=== PATIENT | female | born 1960 | race Caucasian/White ===

== ENCOUNTER 2019-11-06 23:46 | Emergency (ER) | payer MEDICARE, MEDICAID ==
[~2019-11-06] VITALS: Ht 162.6 cm; Wt 98.0 kg
[2019-11-06 23:50] VITALS: BP 124/68
--- NOTE | 2019-11-07 00:01 | NUR ---
PT GIVEN JUICE AND A SANDWICH
--- NOTE | 2019-11-07 02:41 | NUR ---
PT WAS TAKEN TO THE BATHROOM TO VOID. SHE WAS UNABLE TO VOID. SHE THEN SAID SHE WANTS TO LEAVE TO GO SMOKE. MADE AWARE.
--- NOTE | 2019-11-07 02:42 | NUR ---
PT HAS NO C/O ANYTHING OTHER THAN JUST WANTING TO SEE THE MD FOR A PHYSICAL.
== END 2019-11-07 02:48 | disposition home or self-care (01) ==
LOC: ER 23:47
DX: R10.9 Unspecified abdominal pain (principal)
CPT/HCPCS: 99283

== ENCOUNTER 2020-02-20 11:31 | Emergency (ER) | payer BC, MEDICAID ==
[~2020-02-20] VITALS: Ht 162.6 cm; Wt 77.3 kg
[2020-02-20] MEDS ORDERED: LORazepam 2 mg/ml vial IM ONE ×2 (11:40→17:50)
[2020-02-20] MEDS ORDERED: diphenhydrAMINE 50 mg/ml inj IM ONE ×2 (11:40→17:50)
[2020-02-20] MEDS ORDERED: OLANZapine **IM** 10 mg inj. IM ONE (11:40)
[2020-02-20 13:12] LABS: BASOPHILS # (AUTO) 0.1 X10'3 (0-0.2); BASOPHILS % (AUTO) 1.1 % (0-1); EOSINOPHILS # (AUTO) 0.1 X10'3 (0-0.9); EOSINOPHILS % (AUTO) 0.9 % (0-6); HEMATOCRIT 42.3 % (35.0-45.0); LYMPHOCYTES # (AUTO) 2.1 X10'3 (1.1-4.8); LYMPHOCYTES % (AUTO) 32.8 % (21-51); MEAN CORPUSCULAR HEMOGLOBIN 31.1 PG (27.0-31.0); MEAN CORPUSCULAR HGB CONC 33.1 g/dL (33.0-36.5); MEAN CORPUSCULAR VOLUME 93.8 FL (78-98); MEAN PLATELET VOLUME 8.7 FL (7.4-10.4); MONOCYTES # (AUTO) 0.4 X10'3 (0-0.9); MONOCYTES % (AUTO) 6.8 % (2-12); NEUTROPHILS # (AUTO) 3.8 X10'3 (1.8-7.7); NEUTROPHILS % (AUTO) 58.4 % (42-75); PLATELET COUNT 306 X10'3 (140-440); RED BLOOD COUNT 4.51 X10'6 (4.20-5.60); RED CELL DISTRIBUTION WIDTH 13.4 % (11.5-14.5); WHITE BLOOD COUNT 6.5 X10'3 (4.5-11.0)
[2020-02-20 13:31] LABS: ALANINE AMINOTRANSFERASE 28 U/L (12-78); ALBUMIN/GLOBULIN RATIO 1.3 (1.1-1.5); ALKALINE PHOSPHATASE 80 IU/L (46-116); ANION GAP 8 (8-16); ASPARTATE AMINO TRANSFERASE 25 U/L (10-37); BILIRUBIN,TOTAL 0.8 MG/DL (0.1-1.0); BLOOD UREA NITROGEN 14 MG/DL (7-18); BUN/CREATININE RATIO 14.9 (6.6-38.0); CALCIUM 9.9 MG/DL (8.5-10.1); CHLORIDE 105 MMOL/L (99-107); CREATININE 0.94 MG/DL (0.40-0.90); GLUCOSE 100 MG/DL (70-104); POTASSIUM 3.1 MMOL/L (3.5-5.1); SODIUM 141 MMOL/L (135-145); TOTAL CARBON DIOXIDE 27.9 MMOL/L (24-32); TOTAL PROTEIN 7.2 G/DL (6.4-8.2); eGFR 61 ML/MIN
[2020-02-20 13:38] LABS: ETHANOL < 0.010 GM/DL (0.0-0.010)
--- NOTE | 2020-02-20 15:25 | NUR ---
Patient moved from ED bed 10 to ED Overflow bed 23. Assumed care of the patient at this time.
--- NOTE | 2020-02-20 16:17 | NUR ---
Pt is sleeping but is flailing around in the bed and restless. Continuing to monitor closely.
[2020-02-20] MEDS ORDERED: potassium Cl 20 mEq SR tablet PO STA (17:07)
--- NOTE | 2020-02-20 17:30 | NUR ---
pt up to bathroom and back to bed. pt is unhappy and wants to "go outside and smoke a cigar". pt is talking with nurse Sona at bedside now. pt is cursing and mad at the system.
[2020-02-20] MEDS ORDERED: haloperidol lactate 5mg/ml inj IM ONE (17:50)
--- NOTE | 2020-02-20 18:05 | NUR ---
Pt's sister Mckenzie phoned to give more details about the patient's history and made some statements about the patient is not mentally stable and needs to have her medications adjusted.
[2020-02-20] MEDS ORDERED: LAMO150T6 PO (20:30)
[2020-02-20] MEDS ORDERED: AMLO5TAB16 PO (20:30)
[2020-02-20] MEDS ORDERED: CITA20TA16 PO (20:30)
[2020-02-20] MEDS ORDERED: DIVA-74 PO (20:30)
[2020-02-20] MEDS ORDERED: LISI10TA4 PO (20:30)
[2020-02-20] MEDS ORDERED: CHLO25TA10 PO (20:30)
[2020-02-20] MEDS ORDERED: ATOR20TA66 PO (20:30)
[2020-02-20] MEDS ORDERED: atorvastatin 20mg tablet PO SCH (21:00)
--- NOTE | 2020-02-21 02:57 | NUR ---
Patient has been cooperative tonight and has been sleeping most of the shift.
[2020-02-21 05:39] LABS: URINE HCG NEGATIVE (NEG)
[2020-02-21 05:41] LABS: CLARITY,URINE CLEAR (Clear); COLOR,URINE YELLOW (Yellow); GLUCOSE, URINE NEGATIVE (Neg); KETONES,URINE NEGATIVE (Neg); LEUKOCYTE ESTERASE ,URINE NEGATIVE (Neg); NITRITES, URINE NEGATIVE (Neg); OCCULT BLOOD,URINE NEGATIVE (Neg); PH,URINE 6.5 (4.8-8.0); PROTEIN,URINE NEGATIVE (Neg); UROBILINOGEN,URINE 0.2 E.U/dL (0.2-1.0)
[2020-02-21 05:46] LABS: UA COLLECTION TYPE CLN CATCH MIDSTREAM
[2020-02-21 06:02] LABS: URINE AMPHETAMINE SCREEN NEGATIVE (Neg); URINE BARBITUATE SCREEN NEGATIVE (Neg); URINE BENZODIAZEPINES SCREEN NEGATIVE (Neg); URINE CANNABINOID SCREEN NEGATIVE (Neg); URINE COCAINE SCREEN NEGATIVE (Neg); URINE METHADONE SCREEN NEGATIVE (Neg); URINE OPIATE SCREEN NEGATIVE (Neg); URINE PHENCYCLIDINE SCREEN NEGATIVE (Neg)
--- NOTE | 2020-02-21 06:30 | NUR ---
Packet sent to [facility].
[2020-02-21] MEDS ORDERED: ziprasidone IM 20mg inj **IM only IM ONE (06:35)
[2020-02-21] MEDS ORDERED: LORazepam 2 mg/ml vial IM ONE (06:35)
[2020-02-21] MEDS ORDERED: lamoTRIgine 25mg tablet PO SCH (08:00)
[2020-02-21] MEDS ORDERED: divalproex sodium 250mg tablet PO SCH (08:00)
[2020-02-21] MEDS ORDERED: citalopram 20mg tablet PO SCH (08:00)
[2020-02-21] MEDS ORDERED: amLODIPine 5mg tablet PO SCH (08:00)
[2020-02-21] MEDS ORDERED: lisinopril 10 MG tablet PO SCH (08:00)
[2020-02-21] MEDS ORDERED: chlorthalidone 25mg tablet PO SCH (08:00)
--- NOTE | 2020-02-21 08:00 | NUR ---
Pt unable yelling, making inappropriate comments, unable to be redirected. Medicated with geodon and ativan IM. Pt is now sleeping.
--- NOTE | 2020-02-21 10:00 | NUR ---
Pt sleeping on her back. No s/s of acute distress noted.
--- NOTE | 2020-02-21 11:39 | NUR ---
BREAKING PRIMARY RN. PT RESTING IN BED AFTER RECEIVING MEDICATIONS. PT RR OF 15. PT RESTING ON RIGHT SIDE. NO S/S OF DISTRESS OR PAIN. WILL CONTINUE TO MONITOR.
--- NOTE | 2020-02-21 12:38 | NUR ---
relieving RN for lunch, pt is sleeping on bed, resp even and unlabored
--- NOTE | 2020-02-21 15:34 | NUR ---
Pt wakes up to eat and then falls right back to sleep.
[2020-02-21 17:24] VITALS: BP 120/71
--- NOTE | 2020-02-21 17:34 | NUR ---
Pt awake talking on phone to sister.
--- NOTE | 2020-02-21 18:31 | NUR ---
Patient is with [facility] RN.
== END 2020-02-21 20:50 | disposition home or self-care (01) ==
LOC: ER 11:32
DX: F23 Brief psychotic disorder (principal)
CPT/HCPCS: 36415; 80053; 80305; 80320; 81003; 81025; 84443; 85025; 96372; 99285; J1200; J2060; J3486; J3490